=== PATIENT | male | born 1970 | race Caucasian/White ===

== ENCOUNTER → 2017-04-09 | Outpatient (REF) ==
--- NOTE | 2017-04-10 01:16 | REP ---
Clinical: Right-sided pain. Technique: AP, lateral, coned-down views of the lumbosacral spine. Findings: Alignment and lordosis maintained. No acute fracture / compression injury or subluxation. Subtle age-related changes include mild marginal spurring. Disc spaces appear maintained. Impression: Age-appropriate lumbosacral spine radiograph series. If the patient remains symptomatic consider MRI for further investigation. Signed by Tariq Zhu MD 04/10/2017 01:08 A
== END ==
LOC: M RAD 12:30
PROVIDERS: ATTEND Family Medicine
DX: M25.50 Pain in unspecified joint (principal)

== ENCOUNTER → 2018-01-01 | Outpatient (CLI) | payer OTHER ==
[~2018-01-01] MED LIST: CONRAY-43 43% 50ML VIAL (Q9960) As Ordered; PROHANCE 279.3MG/ML 15ML VIAL (A9576) As Ordered
== END ==
LOC: M RADPRO 06:31
DX: S43.432D Superior glenoid labrum lesion of left shoulder, subsequent encounter (principal); S46.012A Strain of muscle(s) and tendon(s) of the rotator cuff of left shoulder, initial encounter; Y92.89 Other specified places as the place of occurrence of the external cause; Y93.89 Activity, other specified; Y99.8 Other external cause status; X58.XXXD Exposure to other specified factors, subsequent encounter
CPT/HCPCS: 23350